=== PATIENT | female | born 1955 | race Asian ===

== ENCOUNTER 2018-11-16 13:04 | Outpatient (CLI) | payer OTHER | END 2018-11-16 20:10 | disposition home or self-care (01) | LOC: RAD 13:04 | DX: M54.5 Low back pain (principal) ==

== ENCOUNTER 2020-11-20 09:54 | Outpatient (CLI) | payer OTHER | END 2020-11-20 19:51 | disposition home or self-care (01) | LOC: RAD 09:54 | PROVIDERS: ATTEND Family Medicine | DX: M79.641 Pain in right hand (principal); M79.642 Pain in left hand; R29.898 Other symptoms and signs involving the musculoskeletal system; M25.532 Pain in left wrist; M25.531 Pain in right wrist ==

== ENCOUNTER 2021-08-23 09:33 | Outpatient (CLI) | payer OTHER | END 2021-08-23 19:50 | disposition home or self-care (01) | LOC: MAMMO 09:33 | PROVIDERS: ATTEND Family Medicine | DX: Z12.31 Encounter for screening mammogram for malignant neoplasm of breast (principal); Z78.0 Asymptomatic menopausal state ==

== ENCOUNTER 2022-10-26 15:39 | Outpatient (CLI) | payer OTHER | END 2022-10-26 19:45 | disposition home or self-care (01) | LOC: RAD 15:39 | PROVIDERS: ATTEND Family Medicine | DX: Z00.00 Encounter for general adult medical examination without abnormal findings (principal); Z13.820 Encounter for screening for osteoporosis; N95.8 Other specified menopausal and perimenopausal disorders ==

== ENCOUNTER 2022-11-17 13:59 | Outpatient (CLI) | payer OTHER | END 2022-11-17 17:00 | disposition home or self-care (01) | LOC: MAMMO 13:59 | PROVIDERS: ATTEND Family Medicine | DX: R92.8 Other abnormal and inconclusive findings on diagnostic imaging of breast (principal); Z12.31 Encounter for screening mammogram for malignant neoplasm of breast ==

== ENCOUNTER 2022-11-23 16:24 | Outpatient (CLI) | payer OTHER | END 2022-11-23 19:06 | disposition home or self-care (01) | LOC: RAD 16:24 | PROVIDERS: ATTEND Family Medicine | DX: M25.561 Pain in right knee (principal); R60.0 Localized edema ==

== ENCOUNTER 2023-06-02 10:40 | Outpatient (CLI) | payer OTHER ==
[2023-06-02 11:27] LABS: PLATELET COUNT 210 K/uL (152-353)
[2023-06-02 11:47] LABS: POTASSIUM 3.9 mmol/L (3.6-5.2)
== END 2023-06-02 19:24 | disposition home or self-care (01) ==
LOC: LABW 10:40
PROVIDERS: ATTEND Family Medicine
DX: I49.8 Other specified cardiac arrhythmias (principal); I10 Essential (primary) hypertension; E78.00 Pure hypercholesterolemia, unspecified; D50.8 Other iron deficiency anemias; M25.569 Pain in unspecified knee; E55.9 Vitamin D deficiency, unspecified
CPT/HCPCS: 36415; 80053; 80061; 81002; 82306; 83735; 84439; 84443; 84550; 85027; 93005